=== PATIENT | male | born 1950 | race Two or more races ===

== ENCOUNTER 2022-08-11 13:30 | Inpatient (IN) | payer MEDICARE, OTHER ==
[~2022-08-11] VITALS: Ht 185.4 cm; Wt 127.0 kg
[2022-08-11 14:20] LABS: Basophils # (auto) 0.1 10 ^3/uL (0-0.2); Eosinophils # (auto) 0.1 10 ^3/uL (0-0.8); Eosinophils % (auto) 1.4 % (0.0-7.0); Hematocrit 42.2 % (41.0-53.0); Lymphocytes # (auto) 1.8 10 ^3/uL (0.4-5.4); Lymphocytes % (auto) 19.3 % (10.0-50.0); Mean Corpuscular Hemoglobin 31.7 pg (28.0-32.0); Mean Corpuscular Hgb Conc. 33.1 g/dL (32.0-36.0); Mean Corpuscular Volume 95.7 fL (80.0-100.0); Monocytes # (auto) 0.7 10 ^3/uL (0-1.3); Monocytes % (auto) 7.3 % (0.0-12.0); Neutrophils # (auto) 6.5 10 ^3/uL (1.6-8.6); Nucleated Red Blood Cells % 0.2 %; Red Blood Cells 4.41 10^6/uL (4.5-5.90); Red Cell Distribution Width 14.6 % (11.8-14.3); White Blood Cell 9.2 10^3/uL (4.4-10.8)
[2022-08-11] MEDS ORDERED: dilTIAZem 25 MG/5 ML VIAL IV ONE (14:30)
[2022-08-11 14:37] LABS: Albumin 3.7 g/dL (3.4-5.0); BUN/Creatinine Ratio 16.8 (10.0-20.0); Calcium 8.7 mg/dL (8.5-10.1)
[2022-08-11 14:39] LABS: Bilirubin, Total 0.9 mg/dL (0.2-1.0); Total Protein 6.9 g/dL (6.4-8.2)
[2022-08-11 14:57] LABS: Potassium 5.1 mmol/L (3.5-5.1)
[2022-08-11 15:24] LABS: Alcohol, Urine < 3.0 mg/dL (0-10); Cannabinoid Screen, Urine NEGATIVE (NEGATIVE); Cocaine Screen, Urine NEGATIVE (NEGATIVE); Opiate Scree,Urine POSITIVE (NEGATIVE); Phencyclidine Screen, Urine NEGATIVE (NEGATIVE)
[2022-08-11 15:31] LABS: Amphetamine Screen, Urine NEGATIVE (NEGATIVE); Barbiturate Scree,Urine NEGATIVE (NEGATIVE); Benzodiazephine Screen, Urine NEGATIVE (NEGATIVE)
[2022-08-11] MEDS ORDERED: HEPARIN SODIUM (PORCINE) 5000 UNITS/ML 1ML VIAL IV ONE (16:15)
[2022-08-11] MEDS ORDERED: FUROSEMIDE 40 MG/4 ML VIAL IV ONE (16:30)
[2022-08-11 16:51] LABS: INR 1.16 (0.9-1.15); Partial Thromboplastin Time 27.5 SEC (24.5-34.5)
[2022-08-11] MEDS: HEPARIN DRIP/D5W 100UNITS/ML 250 ML IV SCH (16:56)
[2022-08-11] MEDS ORDERED: ENOXAPARIN SOD 40 MG/0.4 ML SYRINGE SC SCH (18:45)
[2022-08-11] MEDS ORDERED: ASPirin 81 mg TAB PO ONE (18:45)
[2022-08-11 19:39] LABS: Magnesium 2.5 mg/dL (1.6-2.6); Phosphorus 3.5 mg/dL (2.5-4.90)
[2022-08-11] MEDS: ATORVASTATIN 20 MG TAB PO SCH (22:00)
[2022-08-11 23:30] LABS: INR 1.19 (0.9-1.15); Partial Thromboplastin Time 35.3 SEC (24.5-34.5)
[2022-08-12] MEDS ORDERED: HEPARIN SODIUM (PORCINE) 5000 UNITS/ML 1ML VIAL IV NR (00:15)
[2022-08-12] MEDS: HEPARIN DRIP/D5W 100UNITS/ML 250 ML IV SCH (00:33)
[2022-08-12 01:45] VITALS: BP 115/94
[2022-08-12 05:00] VITALS: BP 132/60
[2022-08-12 06:29] LABS: Basophils # (auto) 0.1 10 ^3/uL (0-0.2); Basophils % (auto) 0.8 % (0.0-2.0); Eosinophils # (auto) 0.1 10 ^3/uL (0-0.8); Eosinophils % (auto) 1.7 % (0.0-7.0); Hematocrit 39.5 % (41.0-53.0); Hemoglobin 13.5 g/dL (13.5-17.5); Lymphocytes # (auto) 1.7 10 ^3/uL (0.4-5.4); Lymphocytes % (auto) 20.6 % (10.0-50.0); Mean Corpuscular Hemoglobin 32.4 pg (28.0-32.0); Mean Corpuscular Hgb Conc. 34.1 g/dL (32.0-36.0); Mean Corpuscular Volume 95.1 fL (80.0-100.0); Monocytes # (auto) 0.6 10 ^3/uL (0-1.3); Monocytes % (auto) 6.9 % (0.0-12.0); Neutrophils # (auto) 5.7 10 ^3/uL (1.6-8.6); Red Blood Cells 4.16 10^6/uL (4.5-5.90); Red Cell Distribution Width 14.2 % (11.8-14.3); White Blood Cell 8.1 10^3/uL (4.4-10.8)
[2022-08-12 06:36] LABS: INR 1.18 (0.9-1.15); Partial Thromboplastin Time 47.7 SEC (24.5-34.5)
[2022-08-12] MEDS: FUROSEMIDE 20 MG/2 ML VIAL IV SCH ×2 (06:55→17:27)
[2022-08-12 06:56] LABS: Albumin 3.5 g/dL (3.4-5.0); BUN/Creatinine Ratio 19.5 (10.0-20.0); Calcium 8.5 mg/dL (8.5-10.1); Total Protein 6.7 g/dL (6.4-8.2)
[2022-08-12] MEDS ORDERED: HEPARIN DRIP/D5W 100UNITS/ML 250 ML IV SCH (07:30)
[2022-08-12 09:14] VITALS: BP 133/91
[2022-08-12] MEDS: ASPirin 81 mg TAB PO SCH (09:59)
[2022-08-12] MEDS: METOPROLOL TARTRATE 25 MG TAB PO SCH (09:59)
[2022-08-12 13:41] LABS: Cholesterol 156 mg/dL (< 200); HDL Cholesterol 36 mg/dL (40-59); LDL Cholesterol 112 mg/dL (< 100); Triglycerides 85 mg/dL (< 150)
[2022-08-12] MEDS ORDERED: APIXABAN 5 MG TAB PO ONE (14:00)
[2022-08-12 14:04] VITALS: BP 129/94
[2022-08-12 16:55] VITALS: BP 121/93
[2022-08-12] MEDS: ATORVASTATIN 20 MG TAB PO SCH (21:59)
[2022-08-12] MEDS: APIXABAN 5 MG TAB PO SCH (21:59)
[2022-08-12 22:00] VITALS: BP 111/75
[2022-08-13 05:00] VITALS: BP 111/80
[2022-08-13] MEDS: FUROSEMIDE 20 MG/2 ML VIAL IV SCH ×2 (06:18→17:26)
[2022-08-13 09:00] VITALS: BP 139/88
[2022-08-13] MEDS: ASPirin 81 mg TAB PO SCH (09:04)
[2022-08-13] MEDS: METOPROLOL TARTRATE 25 MG TAB PO SCH (09:05)
[2022-08-13] MEDS: APIXABAN 5 MG TAB PO SCH ×2 (09:05→22:00)
[2022-08-13 13:00] VITALS: BP 117/74
[2022-08-13 17:00] VITALS: BP 112/64
[2022-08-13 22:00] VITALS: BP_SYST 133; BP_SYST 153; BP_DIAS 63; BP_DIAS 90
[2022-08-13] MEDS: ATORVASTATIN 20 MG TAB PO SCH (22:00)
[2022-08-14 03:53] LABS: Urine Bacteria NONE SEEN /hpf (None Seen); Urine Blood Negative /uL (Negative); Urine Specific Gravity 1.011 (1.001-1.035); Urine WBC <1 /hpf (0 - 3)
[2022-08-14 05:00] VITALS: BP 102/62
[2022-08-14] MEDS: FUROSEMIDE 20 MG/2 ML VIAL IV SCH (06:06)
[2022-08-14] MEDS: ASPirin 81 mg TAB PO SCH (08:39)
[2022-08-14] MEDS: APIXABAN 5 MG TAB PO SCH (08:39)
[2022-08-14] MEDS: METOPROLOL TARTRATE 25 MG TAB PO SCH (08:39)
[2022-08-14 09:00] VITALS: BP 126/74
[2022-08-14] MEDS ORDERED: IODIXANOL 320MG/ML 100ML BTL IV ONE (12:12)
[2022-08-14] MEDS ORDERED: LIDOCAINE 2%HCL (LOCAL ANESTH.) INJ 20ML MDV ONE (12:12)
[2022-08-14] MEDS ORDERED: VERAPAMIL 2.5MG/ML INJ 2ML VIAL IV ONE (12:26)
[2022-08-14] MEDS ORDERED: HEPARIN SODIUM (PORCINE) 5000 UNITS/ML 1ML VIAL ONE (12:26)
[2022-08-14] MEDS ORDERED: ANGIOMAX 250 MG VIAL IV ONE (12:26)
[2022-08-14] MEDS ORDERED: fentaNYL CITRATE 100 MCG/2 ML VL ONE (12:27)
[2022-08-14] MEDS ORDERED: MIDAZOLAM HCL 2MG/2ML 2ml VIAL (1mg/ml) ONE (12:27)
[2022-08-14] MEDS ORDERED: SODIUM CHL 0.9% 0 ML ONE (12:27)
[2022-08-14 13:00] VITALS: BP 120/77
[2022-08-14] MEDS ORDERED: ATOR20TA PO (13:29)
[2022-08-14] MEDS ORDERED: APIX5TAB PO (13:29)
[2022-08-14] MEDS ORDERED: METO25TA5 PO (13:29)
[2022-08-14] MEDS ORDERED: ASPI-463 PO (13:29)
[2022-08-14] MEDS ORDERED: FURO1TAB33 PO (13:29)
[2022-08-14 13:59] VITALS: BP 120/77
== END 2022-08-14 14:30 | disposition home or self-care (01) | DRG 280 ==
LOC: ER 13:30 → TELE 18:51 → TELE-CENTR 23:45
PROVIDERS: ADMIT Nurse Practitioner Family; ATTEND Family Medicine
DX: I11.0 Hypertensive heart disease with heart failure (principal); I21.4 Non-ST elevation (NSTEMI) myocardial infarction; I50.21 Acute systolic (congestive) heart failure; J96.00 Acute respiratory failure, unspecified whether with hypoxia or hypercapnia; I48.92 Unspecified atrial flutter; E66.01 Morbid (severe) obesity due to excess calories; E78.00 Pure hypercholesterolemia, unspecified; R74.01 Elevation of levels of liver transaminase levels; F10.10 Alcohol abuse, uncomplicated; K76.0 Fatty (change of) liver, not elsewhere classified; I48.91 Unspecified atrial fibrillation; I35.0 Nonrheumatic aortic (valve) stenosis; Z68.36 Body mass index [BMI] 36.0-36.9, adult; Z88.2 Allergy status to sulfonamides; Z79.899 Other long term (current) drug therapy; Z82.3 Family history of stroke; Z83.3 Family history of diabetes mellitus; Z82.1 Family history of blindness and visual loss; Z82.49 Family history of ischemic heart disease and other diseases of the circulatory system; Z87.891 Personal history of nicotine dependence; Z79.01 Long term (current) use of anticoagulants; Z71.41 Alcohol abuse counseling and surveillance of alcoholic
CPT/HCPCS: 36415; 71045; 76700; 80053; 80061; 80307; 81001; 83605; 83735; 83880; 84100; 84443; 84484; 85025; 85610; 85730; 86850; 86900; 86901; 87040; 93005; 93306; 96365; 96366; 96375; 96376; G0378; J2250; Q9967